=== PATIENT | male | born 1980 | race Caucasian/White ===

== ENCOUNTER 2017-12-26 21:53 | Emergency (ER) | payer OTHER ==
[~2017-12-26] VITALS: Ht 185.4 cm; Wt 108.9 kg
[2017-12-26] MEDS ORDERED: BACTRIM DS TAB1 EACH PO (22:54)
[2017-12-26] MEDS ORDERED: NABUMETONE 750750 M1 PO (22:54)
[2017-12-26] MEDS ORDERED: KEFLEX500 M1 PO (22:54)
[2017-12-26 23:04] VITALS: BP 149/109
== END 2017-12-26 23:06 | disposition home or self-care (01) ==
LOC: M.ERS 21:53
DX: L03.116 Cellulitis of left lower limb (principal); I10 Essential (primary) hypertension

== ENCOUNTER 2019-05-14 19:44 | Emergency (ER) | payer OTHER ==
[~2019-05-14] VITALS: Ht 188 cm; Wt 113.4 kg
[~2019-05-14 19:44] MED LIST: BACTRIM DS TAB1 EACH PO; KEFLEX500 M1 PO; NABUMETONE 750750 M1 PO
[2019-05-14] MEDS ORDERED: CIPROFLOXIN HC2.5 M1 OPHTHALMIC (21:21)
[2019-05-14] MEDS ORDERED: TYLENOL WITH CO1 TA1 PO (21:21)
[2019-05-14 21:39] VITALS: BP 154/108
== END 2019-05-14 21:40 | disposition home or self-care (01) ==
LOC: M.ERS 19:44
DX: T15.92XA Foreign body on external eye, part unspecified, left eye, initial encounter (principal); X58.XXXA Exposure to other specified factors, initial encounter; Y93.89 Activity, other specified; Y92.89 Other specified places as the place of occurrence of the external cause; Y99.8 Other external cause status

== ENCOUNTER 2019-10-22 20:54 | Emergency (ER) | payer OTHER ==
[~2019-10-22] VITALS: Ht 188 cm; Wt 104.3 kg
[~2019-10-22 20:54] MED LIST changes: +CIPROFLOXIN HC2.5 M1 OPHTHALMIC; +TYLENOL WITH CO1 TA1 PO
[2019-10-22 23:09] VITALS: BP 122/79
== END 2019-10-22 23:09 | disposition home or self-care (01) ==
LOC: M.ERS 20:54
DX: S59.902A Unspecified injury of left elbow, initial encounter (principal); I10 Essential (primary) hypertension; E78.00 Pure hypercholesterolemia, unspecified; M25.532 Pain in left wrist; Z98.52 Vasectomy status; V86.59XA Driver of other special all-terrain or other off-road motor vehicle injured in nontraffic accident, initial encounter; Y93.89 Activity, other specified; Y92.89 Other specified places as the place of occurrence of the external cause; Y99.8 Other external cause status